=== PATIENT | male | born 1995 | race Caucasian/White ===

== ENCOUNTER 2021-09-28 15:19 | Outpatient (CLI) | payer OTHER, SELFPAY ==
--- NOTE | ~2021-09-28 | US_ITS ---
EXAMINATION: US scrotum doppler EXAM DATE: 09/28/2021 16:26 INDICATION: Left testicular pain for one month. TECHNIQUE: Multiple grayscale and Doppler images of the testicles and scrotum were obtained bilateral ly. There is no prior study for comparison. FINDINGS: Right testicle measures 4.4 x 2.7 x 4.1 cm and is morphologically normal. Low resistance Doppler santos w confirmed. The epididymis is unremarkable. Small hydrocele. Left testicle measures 5.0 x 2.5 x 3.1 cm and is morphologically normal. Low resistance Doppler flow confirmed. The epididymis is unremarkable. Small hydrocele. IMPRESSION: Small bilateral hydroceles. Reviewed, dictated and finalized at location B. RT SETTER IMPRESSION: Small bilateral hydroceles.
== END 2021-09-28 15:20 | disposition home or self-care (01) ==
PROVIDERS: Visit Provider Nurse Practitioner Family
DX: N50.812 Left testicular pain (principal); N43.3 Hydrocele, unspecified
CPT/HCPCS: 76870; 93976

== ENCOUNTER 2024-08-29 11:21 | Emergency (ER) | payer OTHER, SELFPAY ==
--- NOTE | ~2024-08-29 | CT_ITS ---
CLINICAL INDICATION: Abdominal pain, weight loss and bloody diarrhea with a history of hemorrhoids. COMPARISON: None. TECHNIQUE: Multiple contiguous axial images of the abdomen and pelvis were performed following the ad ministration of with 100 mL Omnipaque-350 intravenous contrast The dose-length product (DLP) was 488.14 mGy-cm. Automated exposure control and iterative reconstruction technique were employed. FINDINGS/OBSERVATIONS: Visualized lower thorax: The bilateral lung bases are clear. The heart is of normal size, without pericardial effusion. Liver: The liver enhances homogeneously without enlargement measuring 16 cm in longitudinal dimension. Gallbladder and biliary system: The gallbladder is only minimally distended, and otherwise unremarkable. Pancreas: The pancreas enhances homogeneously without ductal dilatation. Spleen: The spleen enhances homogeneously and is not enlarged measuring 8 cm in longitudinal dimension. Kidneys: The bilateral kidneys enhance symmetrically without hydronephrosis or renal calculi. Adrenal glands: Unremarkable. Gastrointestinal tract: Fecal stasis within the colon. Appendix: The air-filled appendix is of normal caliber (axial series, images 94 through 112) Vasculature: Unremarkable. No aneurysmal dilatation or significant stenosis. Lymph nodes: No pathologically enlarged or morphologically suspicious lymph nodes within the retroperitoneum or at the root of the mesentery. Pelvic structures: The bladder is distended, and otherwise unremarkable. The prostate gland is not enlarged. Body wall and musculoskeletal: Small fat-containing umbilical hernia. No significant degenerative disease within the lower thoracic or lumbosacral spine. IMPRESSION: No acute intra-abdominal findings, as detailed above. Reviewed, dictated and finalized at location A. BUSINESS ANALYST
[2024-08-29 11:30] VITALS: BP 154/75; PULSE 79; RESP 17; TEMP 36.6; O2SAT 100
[2024-08-29 14:44] LABS: Basophils Absolute Auto 0.1 K/mm3 (0.0-0.1); Basophils Percent Auto 1.2 % (0.2-1.2); Eosinophils Percent Auto 0.7 % (0-4.4); Hematocrit 44.4 % (42.0-52.0); Hemoglobin 14.9 g/dL (14.0-18.0); Immature Granulocyte Absolute 0.01 K/mm3 (0.00-0.031); Immature Granulocyte Percent A 0.2 % (0-0.5); Lymphocytes Absolute Auto 1.72 K/mm3 (0.9-3.2); Lymphocytes Percent Auto 39.6 % (18.3-44.2); Mean Corpuscular HGB Conc 33.6 g/dl (32-36); Mean Corpuscular Volume 92.5 fl (80-100); Mean Platelet Volume 10.3 fl (7.4-10.4); Monocytes Absolute Auto 0.3 K/mm3 (0.1-0.6); Monocytes Percent Auto 7.4 % (2.6-8.5); Neutrophils Absolute Auto 2.2 K/mm3 (1.3-6.7); Neutrophils Percent Auto 50.9 % (45.5-73.1); Platelet Count Result 224 k/mm3 (150-375); Red Cell Distribution Width 11.9 % (11.5-14.5); White Blood Count 4.3 K/mm3 (4.5-10.0)
[2024-08-29 14:46] LABS: Add Urine Microscopic? NO; Appearance Urine Clear (Clear); Bilirubin Urine Negative (Negative); Blood Urine Negative (Negative); Color Urine Yellow (Yellow); Glucose Urine UA Negative (Negative); Ketones Urine Negative (Negative); Leukocyte Esterase Ur Negative LEU/UL (Negative); Nitrate Urine Negative (Negative); Protein Urine Negative (Negative); Specific Grav Ur 1.008 (1.001-1.035); Urobilinogen Urine 0.2 mg/dL (<2.0)
[2024-08-29 15:00] LABS: Alanine Aminotransferase 19 U/L (6-50); Alkaline Phosphatase 44 U/L (38-126); Anion Gap 7 mmol/L (4-12); Aspartate Amino Transferase 20 U/L (17-59); Bilirubin,Total 0.5 mg/dL (0.2-1.3); Blood Urea Nitrogen 14 mg/dL (9-20); Calcium 9.8 mg/dL (8.4-10.2); Carbon Dioxide 30 mmol/L (22-30); Chloride 102 mmol/L (98-107); Estimated CRCL calculation 106 ml/min; Estimated Glomerular Filt Rate > 60; Glucose 99 mg/dL (65-110); Lipase 83 U/L (23-300); Potassium 4.1 mmol/L (3.4-5.0); Sodium 139 mmol/L (137-145)
[2024-08-29 15:02] LABS: Partial Thromboplastin Time 26.4 Seconds (22.3-36.8); Prothrombin Time 13.6 Seconds (11.1-14.7)
--- NOTE | 2024-08-29 15:26 | ED.ABDPAIN ---
HPI - Abdominal Pain General Chief Complaint: Abdominal Pain Stated Complaint: diarrhea, abdominal pain, weight loss Time Seen by Provider: 08/29/24 14:12 Source: patient Mode of arrival: ambulatory Limitations: no limitations History of Present Illness HPI narrative: This is a 29 year old male that presents to the ER for abdominal discomfort. Ongoing over the last week. Reports about a week ago he was struggling with a hemorrhoid. Reports he had some blood in the stool. Over the last 5 days he has had diarrhea, and abdominal pain/bloating. Reports chills. Also reports recent weight loss. Denies fevers. Related Data Allergies Allergy/AdvReac Type Severity Reaction Status Date / Time No Known Allergies Allergy Verified 08/29/24 14:06 Review of Systems Review of Systems: CONSTITUTIONAL: Denies fever GASTROINTESTINAL: Reports abdominal pain, nausea, and diarrhea. All systems reviewed & are unremarkable except as noted in HPI and below PMFSH Past Medical History Medical History (Updated 08/29/24 @ 18:16 by Kendra Early PA-C) No active medical problems Social History Social History Smoking status: Never smoker Alcohol intake: current Exam Narrative: GENERAL: Well-appearing, well-nourished, and in no acute distress. HEAD: Normocephalic, atraumatic. EYES: EOMI. CHEST: Clear to auscultation. No respiratory distress. No wheezes rales or rhonchi HEART: Regular rate and rhythm. No murmur heard. Normal peripheral pulses. ABDOMEN: Soft, nontender, nondistended, normal active bowel sounds. EXTREMITIES: Normal range of motion. No edema. SKIN: Warm, dry, no rash. NEURO: No focal deficits. Alert and oriented x3. PSYCH: Normal mood and affect Course Course Emergency Course: Patient updated on his workup and agrees with plan of care Vital Signs Vital signs: Vital Signs Temperature 98 F 08/29/24 11:30 Pulse Rate 79 08/29/24 11:30 Respiratory Rate 17 08/29/24 11:30 Blood Pressure 154/75 H 08/29/24 11:30 Pulse Oximetry 100 08/29/24 11:30 Oxygen Delivery Room Air 08/29/24 11:30 Temperature 98 F 08/29/24 11:30 Pulse Rate 79 08/29/24 11:30 Respiratory Rate 17 08/29/24 11:30 Blood Pressure 154/75 H 08/29/24 11:30 Pulse Oximetry 100 08/29/24 11:30 Oxygen Delivery Room Air 08/29/24 11:30 MDM - Abdominal Pain MDM Narrative Medical decision making narrative: Patient presents the emergency department for abdominal pain and loose stools. He is afebrile and nontoxic appearing. His vitals are stable. Cbc without leukocytosis. Hemoglobin is normal. Metabolic panel without concerning findings. Urine without evidence of infection. CT abdomen pelvis no acute findings. Patient was updated on his workup and agrees with plan of care. He is to follow up with primary provider. He is given warnings to return to the ER Differential Diagnosis Differential diagnosis: Likely diverticulitis and gastroenteritis Lab Data Attestation: I reviewed the patient's lab results. 08/29/24 14:35 08/29/24 14:35 Labs: Lab Results 08/29/24 Range/Units 14:35 WBC 4.3 L (4.5-10.0) K/mm3 RBC 4.80 (4.6-6.20) M/mm3 Hgb 14.9 (14.0-18.0) g/dL Hct 44.4 (42.0-52.0) % MCV 92.5 (80-100) fl MCH 31.0 (26-34) pg MCHC 33.6 (32-36) g/dl RDW 11.9 (11.5-14.5) % Plt Count 224 (150-375) k/mm3 MPV 10.3 (7.4-10.4) fl Immature Gran % (Auto) 0.2 (0-0.5) % Neut % (Auto) 50.9 (45.5-73.1) % Lymph % (Auto) 39.6 (18.3-44.2) % [place] % (Auto) 7.4 (2.6-8.5) % Eos % (Auto) 0.7 (0-4.4) % Baso % (Auto) 1.2 (0.2-1.2) % Lymph # (Auto) 1.72 (0.9-3.2) K/mm3 [place] # (Auto) 0.3 (0.1-0.6) K/mm3 Eos # (Auto) 0.0 (0-0.3) K/mm3 Baso # (Auto) 0.1 (0.0-0.1) K/mm3 Abs Immat Gran (auto) 0.01 (0.00-0.031) K/mm3 Absolute Neuts (auto) 2.2 (1.3-6.7) K/mm3 Absolute Nucleated RBC 0.000 (0.0-0.012) K/mm3 Nucleated RBC % 0.0 (0.0-0.2) % PT 13.6 (11.1-14.7) Seconds INR 1.0 APTT 26.4 (22.3-36.8) Seconds Sodium 139 (137-145) mmol/L Potassium 4.1 (3.4-5.0) mmol/L Chloride 102 (98-107) mmol/L Carbon Dioxide 30 (22-30) mmol/L Anion Gap 7 (4-12) mmol/L BUN 14 (9-20) mg/dL Creatinine 0.90 (0.7-1.3) mg/dL Estim Creat Clear Calc 106 ml/min Estimated GFR > 60 (59 - ) Glucose 99 (65-110) mg/dL Calcium 9.8 (8.4-10.2) mg/dL Total Bilirubin 0.5 (0.2-1.3) mg/dL AST 20 (17-59) U/L ALT 19 (6-50) U/L Alkaline Phosphatase 44 (38-126) U/L Total Protein 8.0 (6.3-8.2) g/dL Albumin 5.0 (3.5-5.1) g/dL Lipase 83 (23-300) U/L Urine Color Yellow (Yellow) Urine Appearance Clear (Clear) Urine pH 8.0 (5.0-9.0) Ur Specific [place] 1.008 (1.001-1.035) Urine Protein Negative (Negative) mg/dL Urine Glucose (UA) Negative (Negative) mg/dL Urine Ketones Negative (Negative) mg/dL Ur Blood (Man) Negative (Negative) Urine Nitrate Negative (Negative) Urine Bilirubin Negative (Negative) Urine Urobilinogen 0.2 (<2.0) mg/dL Leukocyte Esterase Rfl Negative (Negative) GEOFF/UL Imaging Data Radiologist's impression: ITS Impressions Abdomen/Pelvis CT 08/29/24 17:21 IMPRESSION: No acute intra-abdominal findings, as detailed above. Critical Care Time Critical Care Time Critical Care Time: No Discharge Plan Discharge Clinical Impression: Abdominal pain Qualifiers: Abdominal location: unspecified location Qualified Code(s): R10.9 - Unspecified abdominal pain Diarrhea Qualifiers: Diarrhea type: unspecified type Qualified Code(s): R19.7 - Diarrhea, unspecified Patient Disposition: Home, Self-Care Condition: Stable Instructions: Acute Diarrhea (ED), Abdominal Pain (ED) Additional Instructions: Return to the ER if you experience fever, abdominal pain with nausea and vomiting, you are unable to keep down liquids or solids, blood in the stool, pain or burning with urination, blood in the urine or any other symptoms that are concerning to you Follow up with primary care doctor for further evaluation and management Patient Language: Scottish Follow-up/Referrals: PHYSICIAN NOT ON STAFF,NONSTAFF [Primary Care Provider] - Frederick Boland MD [Physician] -
[2024-08-29 18:29] VITALS: BP 136/88; PULSE 69; RESP 18; TEMP 36.6; O2SAT 99
== END 2024-08-29 18:31 | disposition home or self-care (01) ==
PROVIDERS: Emergency Provider Physician Assistant
DX: R10.9 Unspecified abdominal pain (principal)
CPT/HCPCS: 36415; 74177; 80053; 81003; 83690; 85025; 85610; 85730; 99284; Q9967